=== PATIENT | male | born 1970 | race Caucasian/White ===

== ENCOUNTER → 2017-06-02 | Outpatient (REF) | LOC: WSOH 16:20 | DX: Z02.89 Encounter for other administrative examinations (principal) ==

== ENCOUNTER 2021-09-19 06:02 | Day surgery (SDC) | payer OTHER ==
[~2021-09-19] VITALS: Ht 182.9 cm; Wt 87.3 kg
[2021-09-19 06:13] VITALS: BP 135/99; PULSE 87; TEMP 97
[2021-09-19 07:45] VITALS: BP 109/76; PULSE 72; TEMP 97.8
--- NOTE | 2021-09-19 07:45 | NUR ---
0745- PATIENT BROUGHT BACK TO ENDO ROOM 1 VIA CART. AMBULATED TO CHAIR WITHOUT DIFFICULTY. PLACED BACK ON MONITORS, VITAL SIGNS STABLE. IV INFUSING WITHOUT DIFFICULTY. PATIENT DENIES PAIN OR NAUSEA. STATES HE WOULD LIKE TOAST AND SPRITE. TO DRIVE PATIENT HOME. REPORT RECIEVED FROM VITO MCKEON, ALL QUESTIONS ANSWERED. WARM BLANKET PROVIDED, CALL [facility] WITHIN REACH. WILL CONTINUE TO MONITOR. 0800- DR. SAMUELS AT BEDSIDE TO DISCUSS RESULTS. TOLERATING FOOD AND DRINK WITHOUT DIFFICULTY.
[2021-09-19 08:00] VITALS: BP 121/50; PULSE 79
[2021-09-19 08:15] VITALS: BP 123/96; PULSE 72
--- NOTE | 2021-09-19 08:15 | NUR ---
0815- PATIENT VITAL SIGNS STABLE. STATES HE WANTS TO GO HOME AT THIS TIME. IV REMOVED, PATIENT TO GET DRESSED AT THIS TIME. DISCHARGE INSTRUCTIONS REVIEWED. ALL QUESTIONS ANSWERED. 0820- PATIENT BROUGHT DOWN TO LOBBY. IN CARE OF FRIENDS AT THIS TIME.
== END 2021-09-19 08:20 | disposition home or self-care (01) ==
LOC: SDCO 06:02
DX: Z12.11 Encounter for screening for malignant neoplasm of colon (principal); D12.5 Benign neoplasm of sigmoid colon; K57.30 Diverticulosis of large intestine without perforation or abscess without bleeding
CPT/HCPCS: J2704; J7030